=== PATIENT | female | born 1965 | race Caucasian/White ===

== ENCOUNTER 2022-02-27 18:46 | Emergency (ER) | payer OTHER ==
[~2022-02-27] VITALS: Ht 154.9 cm; Wt 62.6 kg
== END 2022-02-28 00:24 | disposition home or self-care (01) ==
LOC: ER 18:46
DX: S99.922A Unspecified injury of left foot, initial encounter (principal); W01.0XXA Fall on same level from slipping, tripping and stumbling without subsequent striking against object, initial encounter; Y93.9 Activity, unspecified; Y92.019 Unspecified place in single-family (private) house as the place of occurrence of the external cause